=== PATIENT | female | born 1935 | race African-American/Black ===

== ENCOUNTER 2019-08-04 19:04 | Emergency (ER) | payer OTHER ==
[~2019-08-04] VITALS: Ht 157.5 cm; Wt 59.0 kg
[~2019-08-04 19:04] MED LIST: ADVAIR 100-501 EACH; ADVAIR 250-501 EACH INH; ASPIR 8181 MG PO; CENTRUM SILVER1 EAC2 PO; COZAAR 50 MG TA50 MG PO; HYDROCHLOROTHIA25 M2 PO; METFORMIN HYDRO25 GM
[2019-08-04 21:22] LABS: ABSOLUTE NEUTROPHILS 3.4 thou/uL (1.4-8.2); BASOPHILS 0.7 % (0.0-2.0); EOSINOPHILS 1.8 % (0.0-3.0); HEMATOCRIT 41.6 % (37.0-47.0); HEMOGLOBIN 13.5 gm/dL (12.0-15.0); LYMPHOCYTES 26.4 % (24.0-44.0); MCH 29.6 pg (26.0-34.0); MCHC 32.4 g/dL (28.0-37.0); MCV 91.5 fL (80.0-100.0); MONOCYTES 8.2 % (1.0-8.0); PLATELET COUNT 214 thou/uL (150-400); POLYS 62.9 % (36.0-66.0); RBC 4.54 mil/uL (4.20-5.00); RDW 14.7 % (10.5-14.5); WBC 5.5 thou/uL (4.0-11.0)
[2019-08-04 21:23] LABS: URINE BILIRUBIN NEGATIVE (Negative); URINE BLOOD NEGATIVE (Negative); URINE CLARITY CLEAR; URINE COLOR YELLOW; URINE GLUCOSE-RANDOM* NEGATIVE (Negative); URINE KETONES NEGATIVE (Negative); URINE LEUKOCYTES-REFLEX 3+ (Negative); URINE NITRITE-REFLEX NEGATIVE (Negative); URINE PROTEIN (DIPSTICK) NEGATIVE (Negative); URINE SPECIFIC GRAVITY 1.015 (1.005-1.035); URINE UROBILINOGEN 0.2 E.U./dl (0.2-1.0)
[2019-08-04 21:31] LABS: ANION GAP 9 mmol/L (7-16); BUN 16 mg/dL (7-18); CALCIUM 9.4 mg/dL (8.5-10.1); CHLORIDE 101 mmol/L (98-107); CO2 26 mmol/L (21-32); GLUCOSE 117 mg/dL (74-106); POTASSIUM 3.8 mmol/L (3.5-5.1); SODIUM 136 mmol/L (136-145)
[2019-08-04 21:41] LABS: ALBUMIN 3.9 g/dL (3.4-5.0); SGOT 14 U/L (15-37); SGPT 12 U/L (30-65); TOTAL BILIRUBIN 0.5 mg/dL (<0.1-1.0); TOTAL PROTEIN 7.3 g/dL (6.4-8.2); TROPONIN-I <0.06 ng/mL (<0.06)
[2019-08-04 21:47] LABS: CASTS None Seen /LPF (None Seen); CRYSTALS None Seen /LPF (None Seen); SQUAMOUS 4-10 Moderate /LPF (0-3)
[2019-08-04 21:48] LABS: BACTERIA-REFLEX 1-9 Few /HPF (None Seen); URINE RBC None Seen /HPF (0-2)
[2019-08-04] MEDS ORDERED: KEFLEX500 M2 PO (22:04)
[2019-08-04 22:24] VITALS: BP 167/80
--- NOTE | 2019-08-05 08:05 | EKG ---
[place] [address] [facility] [employer] [address] ELECTROCARDIOGRAM REPORT Name: FABIAN CAMPBELL [id number] Admission: 08/04/19 Attend Phys: Discharge: 08/04/19 Date of : 33 Report #: [id number] THIS REPORT FOR: //name// [facility] ED Test Date: 2019-08-04 Test Time: 20:42:52 Pat Name: FABIAN CAMPBELL Department: Room: Gender: F [employer] Chair: : [id number] Requested By: Soledad Rojas Order Number: [id number] MD: Layo Ramirez Measurements Intervals [place] Rate: 78 P: 55 WV: 180 QRS: -10 QRSD: 79 T: 14 QT: 371 QTc: 423 Interpretive Statements Sinus rhythm Cannot rule out inferior infarct, old Compared to ECG 02/27/2016 22:39:24 No significant change was found Electronically Signed On 08-05-2019 8:05:05 CDT by Layo Ramirez [email or web address] <ELECTRONICALLY SIGNED> By: Layo Ramirez MD, [facility] 08/05/19804 41 41 Layo Ramirez MD, FACC /EPI
== END 2019-08-04 22:27 | disposition home or self-care (01) ==
LOC: ER 19:04
PROVIDERS: Nurse Practitioner Family
DX: I10 Essential (primary) hypertension (principal); N39.0 Urinary tract infection, site not specified; E11.9 Type 2 diabetes mellitus without complications; J45.909 Unspecified asthma, uncomplicated